=== PATIENT | female | born 1970 | race African-American/Black ===

== ENCOUNTER 2017-01-02 12:57 | Emergency (ER) | payer OTHER ==
[2017-01-02 13:03] VITALS: TEMP 97.9; BMI 28.8
[2017-01-02] MEDS ORDERED: METOCLOPRAMIDE HCL INJECTION 10 MG/2 ML VIAL ONE (13:31)
[2017-01-02] MEDS ORDERED: METOCLOPRAMIDE HCL INJECTION 10 MG/2 ML VIAL IVPB ONE (13:45)
[2017-01-02] MEDS ORDERED: KETOROLAC TROMETHAMINE 30 MG/1 ML VIAL IVPUSH ONE (13:45)
[2017-01-02] MEDS ORDERED: SODIUM CHLORIDE 1,000 ML IV STA (13:45)
[2017-01-02] MEDS ORDERED: KETOROLAC TROMETHAMINE 30 MG/1 ML VIAL ONE (13:52)
[2017-01-02 13:58] LABS: BASOPHIL 0.9 % (0-2.0); EOSINOPHIL 0.5 % (0-4.5); MCH 28.4 pg (25.7-33.7); MEAN CELL VOLUME 86.1 fl (80-96); MEAN PLT VOLUME 7.5 fl (7.5-11.1); NEUTROPHILS 64.6 % (42.8-82.8); PLATELET COUNT 184 K/MM3 (134-434); RDW 12.8 % (11.6-15.6); WHITE BLOOD COUNT 3.9 K/mm3 (4.0-10.0)
[2017-01-02 14:02] LABS: URINE APPEARANCE CLEAR; URINE BILIRUBIN NEGATIVE (NEGATIVE); URINE BLOOD NEGATIVE (NEGATIVE); URINE COLOR LTYELLOW; URINE GLUCOSE (UA) NEGATIVE (NEGATIVE); URINE KETONE NEGATIVE (NEGATIVE); URINE LEUK ESTERASE NEGATIVE (NEGATIVE); URINE NITRITE NEGATIVE (NEGATIVE); URINE PROTEIN NEGATIVE (NEGATIVE); URINE UROBILINOGEN NEGATIVE E.U./dl (0.2-1.0)
[2017-01-02 14:26] LABS: ALBUMIN 3.4 g/dl (3.4-5.0); ANION GAP 7 (8-16); CO2 28 mmol/L (21-32); CREATININE 0.9 mg/dL (0.55-1.02); GLUCOSE,RANDOM 86 mg/dL (74-106); SGOT/AST 14 U/L (15-37); SGPT/ALT 17 U/L (12-78)
[2017-01-02 14:27] LABS: ALK PHOS 40 U/L (45-117); BILIRUBIN,TOTAL 0.5 mg/dL (0.2-1.0); TOT PROT 6.6 g/dl (6.4-8.2)
[2017-01-02] MEDS ORDERED: morphine CARPU-JECT 4 MG/1 ML DISP.SYRIN ONE (14:49)
--- NOTE | 2017-01-02 15:23 | PDOC ---
History of Present Illness - General Chief Complaint: Nausea/Vomiting Stated Complaint: NAUSEA, HEADACHE Time Seen by Provider: 01/02/17 13:06 History Source: Patient Exam Limitations: No Limitations - History of Present Illness Initial Comments: 01/02/17 15:23 46-year-old female presents to the ED with complaints of frontal retro-orbital pressure that began this morning upon awakening. Patient states has now developed mild nausea without visual changes, neck pain, fever, chills, chest pain, or abdominal pain. Patient states does not suffer from headaches denies any recent trauma, head injury, ear pain, recent dental work, or recent travel. Patient denies familial history of aneurysm. Timing/Duration: reports: constant Severity: Yes: moderate Associated Symptoms: reports: nausea/vomiting, other (headache) Past History - Past Medical History Allergies/Adverse Reactions: Allergies Allergy/AdvReac Type Severity Reaction Status Date / Time No Known Allergies Allergy Verified 01/02/17 13:03 Home Medications: Ambulatory Orders No Home Medications 0 dose .ROUTE UTDICT 12/26/13 Anemia: Yes Asthma: No Cancer: No Cardiac Disorders: No CVA: No COPD: No CHF: No Dementia: No Diabetes: No GI Disorders: No Disorders: No HTN: No Hypercholesterolemia: No Liver Disease: No Seizures: No Thyroid Disease: No - Surgical History Abdominal Surgery: No Appendectomy: No Cardiac Surgery: No Cholecystectomy: No GI Surgery: Yes (colon resection) Lung Surgery: No Neurologic Surgery: No Orthopedic Surgery: No - Family Disease History Comment:: 01/02/17 15:28 pt denies - Reproductive History LMP Normal: Yes Is Patient Now?: No - Psycho/Social/Smoking Cessation Hx Anxiety: No Suicidal Ideation: No Smoking History: Never smoked Have you smoked in the past 12 months: No Information on smoking cessation initiated: No Hx Alcohol Use: No Drug/Substance Use Hx: No Substance Use Type: None Patient Lives Alone: No Lives with/in: spouse/SO Neuro Specific PMHX - Complaint Specific PMHX Migraine: No Review of Systems - Review of Systems Able to Perform ROS?: Yes Constitutional: No: Symptoms Reported HEENTM: No: Symptoms Reported Respiratory: No: Symptoms reported Cardiac (ROS): No: Symptoms Reported ABD/GI: Yes: Nausea : No: Symptoms Reported Musculoskeletal: No: Symptoms Reported Integumentary: No: Symptoms Reported Neurological: Yes: Headache. No: Paresthesia, Weakness, Dizziness Hematologic/Lymphatic: No: Symptoms Reported *Physical Exam - Vital Signs Last Vital Signs Temp Pulse Resp BP Pulse Ox 97.9 F 65 18 141/85 99 01/02/17 13:01 01/02/17 13:01 01/02/17 13:01 01/02/17 13:01 01/02/17 13:01 - Physical Exam General Appearance: Yes: Nourished, Appropriately Dressed. No: Apparent Distress HEENT: positive: EOMI, MIKA, TMs Normal, Pharynx Normal. negative: Pale Conjunctivae Neck: positive: Supple. negative: Tender, Decreased range of motion Respiratory/Chest: positive: Lungs Clear, Normal Breath Sounds. negative: Respiratory Distress, Accessory Muscle Use Cardiovascular: positive: Regular Rhythm, Regular Rate. negative: Murmur Gastrointestinal/Abdominal: positive: Soft. negative: Tenderness Extremity: positive: Normal Capillary Refill. negative: Pedal Edema Integumentary: positive: Normal Color, Warm, Moist Neurologic: positive: Motor Strength 5/5 ED Treatment Course - LABORATORY CBC & Chemistry Diagram: 01/02/17 13:50 01/02/17 13:50 - ADDITIONAL ORDERS Additional order review: Laboratory Results 01/02/17 01/02/17 13:50 13:50 Sodium 143 Potassium 3.8 Chloride 108 H Carbon Dioxide 28 Anion Gap 7 L BUN 16 Creatinine 0.9 Creat Clearance w eGFR > 60 Random Glucose 86 Calcium 9.0 Total Bilirubin 0.5 D AST 14 L ALT 17 Alkaline Phosphatase 40 L Total Protein 6.6 Albumin 3.4 Urine Color Ltyellow Urine Appearance Clear Urine pH 6.0 Ur Specific [place] 1.021 Urine Protein Negative Urine Glucose (UA) Negative Urine Ketones Negative Urine Blood Negative Urine Nitrite Negative Urine Bilirubin Negative Urine Urobilinogen Negative Ur Leukocyte Esterase Negative Urine HCG, Qual Negative 01/02/17 13:50 RBC 4.69 MCV 86.1 MCHC 33.0 RDW 12.8 MPV 7.5 Neutrophils % 64.6 D Lymphocytes % 28.2 D Monocytes % 5.8 Eosinophils % 0.5 Basophils % 0.9 - RADIOLOGY Radiology Studies Ordered: Category Date Time Status HEAD CT WITHOUT CONTRAST [CT] Stat CT Scan 01/02/17 14:35 Completed - Medications Given in the ED: ED Medications Discontinued Medications Generic Name Dose Route Start Last Admin Trade Name Freq PRN Reason Stop Dose Admin Diphenhydramine HCl 50 mg 01/02/17 13:46 01/02/17 14:16 Benadryl Injection - IVPB 01/02/17 13:47 50 mg ONCE ONE Administration Sodium Chloride 1,000 mls @ 1,000 mls/hr 01/02/17 13:45 01/02/17 13:50 Normal Saline - IV 01/02/17 14:44 1,000 mls/hr ASDIR STA Administration Ketorolac Tromethamine 30 mg 01/02/17 13:45 01/02/17 14:11 Toradol Injection - IVPUSH 01/02/17 13:46 30 mg ONCE ONE Administration Metoclopramide HCl 10 mg 01/02/17 13:45 01/02/17 13:51 Reglan Injection - IVPB 01/02/17 13:46 10 mg ONCE ONE Administration Medical Decision Making - Medical Decision Making 01/02/17 14:39 Patient with complaints of waking up with a frontal retro-orbital throbbing pressure now associated with nausea and vomiting. Patient with normal vital signs patient is afebrile. Patient had no acute findings on exam. Patient concerning for subarachnoid hemorrhage versus mass versus migraine. Patient ordered for labs and IV fluids, analgesics, and antiemetics. Urine pending. 01/02/17 15:00 Patient states feeling better with no complaints of headache presently. Patient refusing LP patient ordered for head CTA to rule out aneurysm. Repeat vital stable. at bedside. Patient requesting to eat. Laboratory Tests 01/02/17 01/02/17 01/02/17 13:50 13:50 13:50 WBC 3.9 L Hgb 13.3 Hct 40.4 Plt Count 184 D Neutrophils % 64.6 D Sodium 143 Potassium 3.8 Chloride 108 H Carbon Dioxide 28 Anion Gap 7 L BUN 16 Creatinine 0.9 Random Glucose 86 AST 14 L ALT 17 Alkaline Phosphatase 40 L Urine Nitrite Negative Ur Leukocyte Esterase Negative Urine HCG, Qual Negative 01/02/17 17:04 There is no evidence of occlusion, hemodynamically significant stenosis or aneurysm of the major intracranial arteries. 01/02/17 17:06 Selected Entries 01/02/17 15:57 Pulse Rate [ 59 L Radial] Respiratory 14 Rate Blood Pressure 117/60 [Left Arm] O2 Sat by Pulse 100 Oximetry (%) *DC/Admit/Observation/Transfer Diagnosis at time of Disposition: Headache Qualifiers: Headache type: unspecified Intractability: not intractable - Discharge Dispostion Disposition: HOME Condition at time of disposition: Improved - Referrals Referrals: Jose M Eastman MD [Primary Care Provider] - Shelly Bustos MD [Staff Physician] - - Patient Instructions Printed Discharge Instructions: DI for Headache Additional Instructions: I recommend that you provide yourself with the cold,quiet and dark environment for the next 2 days and take fioricet as needed for headache. I also recommend that you follow-up with Dr. Bustos as discussed and return to the ED at any given time if symptoms return or worsen.
--- NOTE | 2017-01-02 15:45 | PDOC ---
[id number]/85 99 01/02/17 13:01 01/02/17 13:01 01/02/17 13:01 01/02/17 13:01 01/02/17 13:01 - Physical Exam Comments: 01/02/17 15:45 The patient was examined by [RACHNA Gilbert] under my direct supervision. I personally evaluated the patient. I concur with the above findings and the plan of care. ED Treatment Course - LABORATORY CBC & Chemistry Diagram: 01/02/17 13:50 01/02/17 13:50 - ADDITIONAL ORDERS Additional order review: Laboratory Results 01/02/17 01/02/17 13:50 13:50 Sodium 143 Potassium 3.8 Chloride 108 H Carbon Dioxide 28 Anion Gap 7 L BUN 16 Creatinine 0.9 Creat Clearance w eGFR > 60 Random Glucose 86 Calcium 9.0 Total Bilirubin 0.5 D AST 14 L ALT 17 Alkaline Phosphatase 40 L Total Protein 6.6 Albumin 3.4 Urine Color Ltyellow Urine Appearance Clear Urine pH 6.0 Ur Specific [place] 1.021 Urine Protein Negative Urine Glucose (UA) Negative Urine Ketones Negative Urine Blood Negative Urine Nitrite Negative Urine Bilirubin Negative Urine Urobilinogen Negative Ur Leukocyte Esterase Negative Urine HCG, Qual Negative 01/02/17 13:50 RBC 4.69 MCV 86.1 MCHC 33.0 RDW 12.8 MPV 7.5 Neutrophils % 64.6 D Lymphocytes % 28.2 D Monocytes % 5.8 Eosinophils % 0.5 Basophils % 0.9 - Medications Given in the ED: ED Medications Discontinued Medications Generic Name Dose Route Start Last Admin Trade Name Freq PRN Reason Stop Dose Admin Diphenhydramine HCl 50 mg 01/02/17 13:46 01/02/17 14:16 Benadryl Injection - IVPB 01/02/17 13:47 50 mg ONCE ONE Administration Sodium Chloride 1,000 mls @ 1,000 mls/hr 01/02/17 13:45 01/02/17 13:50 Normal Saline - IV 01/02/17 14:44 1,000 mls/hr ASDIR STA Administration Ketorolac Tromethamine 30 mg 01/02/17 13:45 01/02/17 14:11 Toradol Injection - IVPUSH 01/02/17 13:46 30 mg ONCE ONE Administration Metoclopramide HCl 10 mg 01/02/17 13:45 01/02/17 13:51 Reglan Injection - IVPB 01/02/17 13:46 10 mg ONCE ONE Administration *DC/Admit/Observation/Transfer Diagnosis at time of Disposition: Headache - Discharge Dispostion Disposition: HOME Condition at time of disposition: Improved - Prescriptions Prescriptions: Acetaminophen/Caffeine/Butalb [Fioricet -] 1 tab PO TID PRN #21 tablet MDD 3 PRN Reason: Headache - Referrals Referrals: Shelly Bustos MD [Staff Physician] - Jose M Eastman MD [Primary Care Provider] - - Patient Instructions Printed Discharge Instructions: DI for Headache Additional Instructions: I recommend that you provide yourself with the cold,quiet and dark environment for the next 2 days and take fioricet as needed for headache. I also recommend that you follow-up with Dr. Bustos as discussed and return to the ED at any given time if symptoms return or worsen. - Post Discharge Activity Work/School Note: Back to Work
[2017-01-02 15:59] VITALS: BP 117/60; PULSE 59
== END 2017-01-02 17:18 | disposition home or self-care (01) ==
LOC: JER 12:57
PROC: 3E0333Z Introduction of Anti-inflammatory into Peripheral Vein, Percutaneous Approach (ICD-10-PCS; principal; 2017-01-02)
PROC: 3E033GC Introduction of Other Therapeutic Substance into Peripheral Vein, Percutaneous Approach (ICD-10-PCS; 2017-01-02)
DX: R51 Headache (principal)
CPT/HCPCS: 36415; 70450-TC; 70496-TC; 80053; 81003; 84703; 85025; 99284-25